=== PATIENT | male | born 1995 | race Caucasian/White ===

== ENCOUNTER 2016-06-28 06:01 | Day surgery (SDC) | payer OTHER ==
[2016-06-28] MEDS ORDERED: Lactated Ringers 1,000 ML IV SCH (06:30)
[2016-06-28 06:55] VITALS: O2SAT 98
[2016-06-28] MEDS ORDERED: Ketamine HCl 50 MG/ML IV ONE (08:00)
[2016-06-28] MEDS ORDERED: DIPRIVAN 200 MG/20 ML IV ONE (08:00)
--- NOTE | 2016-06-28 09:27 | OP ---
SURGERY DATE/TIME: 06/28/2016825 PREOPERATIVE DIAGNOSIS: Epigastric abdominal pain. POSTOPERATIVE DIAGNOSIS: Normal exam. PROCEDURE: EGD. SURGEON: Tony Stewart M.D. ANESTHESIA: MAC by Lj Wesley CRNA. ESTIMATED BLOOD LOSS: None. SPECIMENS: None. DESCRIPTION OF PROCEDURE: After informed written consent was obtained, the patient was taken to the endoscopy suite. Bite block was inserted. He underwent monitored anesthesia. The endoscope was inserted in the posterior oropharynx and under direct visualization the esophagus was traversed. The esophageal mucosa had a normal appearance free of any lesions or defects. The gastroesophageal junction was normal upon entering the stomach. The gastric mucosa had a normal rugated appearance free of any lesions or defects. The pylorus was traversed and the first and second portions of the duodenum were within normal limits. Upon withdrawal the gastric antrum, entire gastric mucosa, gastroesophageal junction and esophageal mucosa again appeared within normal limits. The scope was removed and the patient was transferred to the recovery room in excellent condition.
[2016-06-28 09:42] VITALS: BP 128/80; PULSE 70
== END 2016-06-28 09:48 | disposition home or self-care (01) ==
LOC: SDC 06:01
PROVIDERS: ATTEND Family Medicine
PROC: 0DJ08ZZ Inspection of Upper Intestinal Tract, Via Natural or Artificial Opening Endoscopic (ICD-10-PCS; principal; 2016-06-28)
DX: R10.13 Epigastric pain (principal)
CPT/HCPCS: 00740; J2704